=== PATIENT | male | born 1950 | race Caucasian/White ===

== ENCOUNTER 2021-04-11 08:36 | Emergency (ER) | payer MEDICARE ==
[~2021-04-11] VITALS: Ht 188 cm; Wt 92.0 kg
[2021-04-11] MEDS ORDERED: ZETIA10 MG PO (10:03)
[2021-04-11] MEDS ORDERED: LIPITOR40 M1 PO (10:03)
[2021-04-11] MEDS ORDERED: ALFUZOSIN HCL E10 MG PO (10:03)
[2021-04-11] MEDS ORDERED: PROTONIX40 M2 PO (10:04)
[2021-04-11] MEDS ORDERED: LEVOTHYROXIN75 MCG PO (10:04)
[2021-04-11] MEDS ORDERED: PROSTATE 2.4 PO (10:05)
[2021-04-11] MEDS ORDERED: FISH OIL1000 MG PO (10:05)
[2021-04-11] MEDS ORDERED: LORTAB 1010 MG PO (10:05)
[2021-04-11] MEDS ORDERED: ASPIRIN81 MG PO (10:06)
[2021-04-11] MEDS ORDERED: MULTIVITAMIN1 TA1 (10:06)
[2021-04-11] MEDS ORDERED: L-THEANINE100 MG PO (10:07)
[2021-04-11] MEDS ORDERED: PROAIR HFA IN (10:07)
[2021-04-11] MEDS ORDERED: HYDROCORTISO2.51 EX (10:08)
[2021-04-11 12:01] VITALS: BP 127/62
== END 2021-04-11 12:01 | disposition home or self-care (01) ==
LOC: ED 08:36
DX: M54.50 Low back pain, unspecified (principal); I10 Essential (primary) hypertension; W17.89XA Other fall from one level to another, initial encounter